=== PATIENT | male | born 1955 | race Caucasian/White ===

== ENCOUNTER 2017-04-24 07:48 | Inpatient (IN) | payer MEDICAID ==
[2017-04-24] MEDS ORDERED: Sodium Chloride 0.9% 10 ML Syringe FLUSH PRN ×2 (08:18→09:18)
--- NOTE | 2017-04-24 08:48 | EDM.PDOC ---
ED HPI GENERAL MEDICAL PROBLEM - General Chief Complaint: Respiratory Problem Stated Complaint: SOB/HAS HAD A PULMONARY EMBOLISM Time Seen by Provider: 04/24/17 08:05 Source of Information: Reports: Patient History Limitations: Reports: No Limitations - History of Present Illness INITIAL COMMENTS - FREE TEXT/NARRATIVE: pt has had increasing sob. He has a history of pulmonary emboli. he has been having increased difficulty with tolerating activity. He was blowing snow yesterdsy and felt like he was going to pas out. Onset: Gradual Duration: Hour(s): Location: Reports: Chest Associated Symptoms: Reports: Other (pt gets aching in his arms when he gets very sob. ) - Related Data Allergies Allergy/AdvReac Type Severity Reaction Status Date / Time No Known Allergies Allergy Verified 04/24/17 08:05 Home Meds: Home Meds Omeprazole 20 mg PO DAILY 03/19/16 [History] Propranolol [Inderal LA] 80 mg PO DAILY 03/19/16 [History] buPROPion [Wellbutrin XL] 150 mg PO DAILY 03/19/16 [History] Naproxen 1 tab PO ASDIRECTED 04/24/17 [History] Past Medical History Cardiovascular History: Reports: Blood Clots/VTE/DVT, Hypertension Respiratory History: Reports: PE, Pneumonia, Recurrent Gastrointestinal History: Reports: GERD Genitourinary History: Reports: Other (See Below) Other Genitourinary History: decressed urine flow Musculoskeletal History: Reports: Fracture Neurological History: Reports: Concussion - Infectious Disease History Infectious Disease History: Reports: Measles - Past Surgical History Cardiovascular Surgical History: Reports: Other (See Below) Other Cardiovascular Surgeries/Procedures: angiogram jun 2016 GI Surgical History: Reports: Appendectomy Musculoskeletal Surgical History: Reports: Arthroscopic Knee Social & Family History - Tobacco Use Smoking Status *Q: Never Smoker - Caffeine Use Caffeine Use: Reports: Coffee, Tea - Recreational Drug Use Recreational Drug Use: No ED ROS GENERAL - Review of Systems Review Of Systems: See Below Constitutional: Reports: No Symptoms HEENT: Reports: No Symptoms Respiratory: Reports: Shortness of Breath, Cough, Other ( some tightness inhis chest with deep breathing. ) Endocrine: Reports: No Symptoms GI/Abdominal: Reports: No Symptoms : Reports: No Symptoms ED EXAM, GENERAL - Physical Exam Exam: See Below Free Text/Narrative:: pt arrived with sob. which has been progressive. he had 2 episodes yestwrday when he was blowing snow. -- when he felt like he was going to pass out. Exam Limited By: No Limitations General Appearance: Alert, Mild Distress, Severe Distress Ears: Normal TMs Nose: Normal Inspection Throat/Mouth: Normal Inspection Head: Atraumatic Neck: Normal Inspection Respiratory/Chest: Decreased Breath Sounds, Other (pt is very sob with any activity. ) Cardiovascular: Regular Rate, Rhythm GI/Abdominal: Soft, Non-Tender Rectal (Males) Exam: Deferred Back Exam: Normal Inspection Extremities: Normal Inspection, Other ( no tenderness present.) Neurological: Alert, Oriented, Normal Cognition Psychiatric: Normal Affect Course - Vital Signs Last Recorded V/S: Last Vital Signs Temp 33.4 C L 04/24/17 08:04 Pulse 69 04/24/17 09:10 Resp 25 H 04/24/17 09:10 BP 101/57 L 04/24/17 09:10 Pulse Ox 89 L 04/24/17 09:10 - Orders/Labs/Meds Orders: Active Orders 24 hr Category Date Time Status EKG Documentation Completion [RC] ASDIRECTED Care 04/24/17 08:17 Active Ang Chest [CT] Stat Exams 04/24/17 09:08 Taken Chest 2V [CR] Stat Exams 04/24/17 08:32 Taken Iopamidol [Isovue-370 (76%)] Med 04/24/17 09:30 Active 100 ml IV . DIRECTED Sodium Chloride 0.9% [Normal Saline] 1,000 ml Med 04/24/17 09:15 Active IV ASDIRECTED Sodium Chloride 0.9% [Normal Saline] 90 ml Med 04/24/17 09:30 Active IV ASDIRECTED Sodium Chloride 0.9% [Saline Flush] Med 04/24/17 08:18 Active 10 ml FLUSH ASDIRECTED PRN Sodium Chloride 0.9% [Saline Flush] Med 04/24/17 09:18 Active 10 ml FLUSH ONETIME PRN Saline Lock Insert [OM.PC] Routine Oth 04/24/17 08:18 Ordered EKG 12 Lead [EK] Routine Ther 04/24/17 08:17 Ordered Medication Orders Sodium Chloride (Normal Saline) 1,000 mls @ 500 mls/hr IV ASDIRECTED OLEGARIO Last Admin: 04/24/17 09:23 Dose: 500 mls/hr Sodium Chloride (Normal Saline) 90 mls @ 4 mls/sec IV ASDIRECTED OLEGARIO Stop: 04/24/17 23:00 Last Admin: 04/24/17 09:45 Dose: 4 mls/sec Iopamidol (Isovue-370 (76%)) 100 ml IV . DIRECTED OLEGARIO Stop: 04/24/17 23:00 Last Admin: 04/24/17 09:45 Dose: 100 ml Sodium Chloride (Saline Flush) 10 ml FLUSH ASDIRECTED PRN PRN Reason: Keep Vein Open Sodium Chloride (Saline Flush) 10 ml FLUSH ONETIME PRN PRN Reason: per radiology protocol Stop: 04/24/17 23:00 Last Admin: 04/24/17 09:45 Dose: 10 ml Labs: Laboratory Tests 04/24/17 04/24/17 04/24/17 Range/Units 08:25 08:25 08:25 WBC 12.7 H (4.5-11.0) K/uL RBC 4.75 (4.30-5.90) M/uL Hgb 16.4 H (12.0-15.0) g/dL Hct 47.7 (40.0-54.0) % MCV 100 H (80-98) fL MCH 35 H (27-31) pg MCHC 34 (32-36) % Plt Count 161 (150-400) K/uL Neut % (Auto) 67 H (36-66) % Lymph % (Auto) 18 L (24-44) % Cole % (Auto) 8 H (2-6) % Eos % (Auto) 7 H (2-4) % Baso % (Auto) 1 (0-1) % PT (9.5-12.0) sec INR (0.80-1.20) APTT (27.0-36.0) sec D-Dimer, Quantitative (0.0-400.0) ng/mL Sodium 138 L (140-148) mmol/L Potassium 4.2 (3.6-5.2) mmol/L Chloride 105 (100-108) mmol/L Carbon Dioxide 20 L (21-32) mmol/L Anion Gap 17.2 H (5.0-14.0) mmol/L BUN 20 H (7-18) mg/dL Creatinine 1.3 (0.8-1.3) mg/dL Est Cr Clr Drug Dosing 63.84 mL/min Estimated GFR (MDRD) 56 L (>60) Glucose 158 H (74-106) mg/dL Calcium 8.7 (8.5-10.1) mg/dL Total Bilirubin 1.1 H D (0.2-1.0) mg/dL AST 38 H (15-37) U/L ALT 53 (12-78) U/L Alkaline Phosphatase 81 (46-116) U/L CK-MB (CK-2) 1.9 (0-3.6) mg/mL Troponin I 0.070 H* (0.000-0.056) ng/mL NT-Pro-B Natriuret Pep (5-125) pg/mL Total Protein 6.6 (6.4-8.2) g/dL Albumin 3.5 (3.4-5.0) g/dL Globulin 3.1 (2.3-3.5) g/dL Albumin/Globulin Ratio 1.1 L (1.2-2.2) 04/24/17 04/24/17 04/24/17 Range/Units 08:25 08:32 09:43 WBC (4.5-11.0) K/uL RBC (4.30-5.90) M/uL Hgb (12.0-15.0) g/dL Hct (40.0-54.0) % MCV (80-98) fL MCH (27-31) pg MCHC (32-36) % Plt Count (150-400) K/uL Neut % (Auto) (36-66) % Lymph % (Auto) (24-44) % [place] % (Auto) (2-6) % Eos % (Auto) (2-4) % Baso % (Auto) (0-1) % PT 11.6 (9.5-12.0) sec INR 1.08 (0.80-1.20) APTT 28.9 (27.0-36.0) sec D-Dimer, Quantitative 2830 H (0.0-400.0) ng/mL Sodium (140-148) mmol/L Potassium (3.6-5.2) mmol/L Chloride (100-108) mmol/L Carbon Dioxide (21-32) mmol/L Anion Gap (5.0-14.0) mmol/L BUN (7-18) mg/dL Creatinine (0.8-1.3) mg/dL Est Cr Clr Drug Dosing mL/min Estimated GFR (MDRD) (>60) Glucose (74-106) mg/dL Calcium (8.5-10.1) mg/dL Total Bilirubin (0.2-1.0) mg/dL AST (15-37) U/L ALT (12-78) U/L Alkaline Phosphatase (46-116) U/L CK-MB (CK-2) (0-3.6) mg/mL Troponin I (0.000-0.056) ng/mL NT-Pro-B Natriuret Pep 5607 H (5-125) pg/mL Total Protein (6.4-8.2) g/dL Albumin (3.4-5.0) g/dL Globulin (2.3-3.5) g/dL Albumin/Globulin Ratio (1.2-2.2) Meds: Medications Generic Name Dose Route Start Last Admin Trade Name Freq PRN Reason Stop Dose Admin Sodium Chloride 1,000 mls @ 500 mls/hr 04/24/17 09:15 04/24/17 09:23 Normal Saline IV 500 mls/hr ASDIRECTED OLEGARIO Administration Sodium Chloride 90 mls @ 4 mls/sec 04/24/17 09:30 04/24/17 09:45 Normal Saline IV 04/24/17 23:00 4 mls/sec ASDIRECTED OLEGARIO Administration Iopamidol 100 ml 04/24/17 09:30 04/24/17 09:45 Isovue-370 (76%) IV 04/24/17 23:00 100 ml . DIRECTED OLEGARIO Administration Sodium Chloride 10 ml 04/24/17 08:18 Saline Flush FLUSH ASDIRECTED PRN Keep Vein Open Sodium Chloride 10 ml 04/24/17 09:18 04/24/17 09:45 Saline Flush FLUSH 04/24/17 23:00 10 ml ONETIME PRN Administration per radiology protocol Discontinued Medications Generic Name Dose Route Start Last Admin Trade Name Freq PRN Reason Stop Dose Admin Heparin Sodium (Porcine) 5,000 units 04/24/17 10:01 Heparin Sodium IVPUSH 04/24/17 10:02 ONETIME ONE - Re-Assessments/Exams Free Text/Narrative Re-Assessment/Exam: 04/24/17 09:15 ddimer is high, his trop is elevated, His bnp is elevated. 04/24/17 10:02 lung scan was very positive for large pes bilateral. Departure - Departure Time of Disposition: 10:03 Disposition: Admitted As Inpatient 64 Condition: Fair Clinical Impression: Pulmonary embolism, bilateral, T wave inversion in EKG, Elevated brain natriuretic peptide (BNP) level - Discharge Information Referrals: David Elliott MD [Primary Care Provider] - Forms: ED Department Discharge Care Plan Goals: admit to Dr lane. - My Orders Last 24 Hours: My Active Orders 04/24/17 08:17 EKG Documentation Completion [RC] ASDIRECTED EKG 12 Lead [EK] Routine 04/24/17 08:18 Sodium Chloride 0.9% [Saline Flush] 10 ml FLUSH ASDIRECTED PRN Saline Lock Insert [OM.PC] Routine 04/24/17 08:32 Chest 2V [CR] Stat 04/24/17 09:08 Ang Chest [CT] Stat 04/24/17 09:15 Sodium Chloride 0.9% [Normal Saline] 1,000 ml IV ASDIRECTED 04/24/17 09:18 Sodium Chloride 0.9% [Saline Flush] 10 ml FLUSH ONETIME PRN 04/24/17 09:30 Iopamidol [Isovue-370 (76%)] 100 ml IV . DIRECTED Sodium Chloride 0.9% [Normal Saline] 90 ml IV ASDIRECTED - Assessment/Plan Last 24 Hours: My Active Orders 04/24/17 08:17 EKG Documentation Completion [RC] ASDIRECTED EKG 12 Lead [EK] Routine 04/24/17 08:18 Sodium Chloride 0.9% [Saline Flush] 10 ml FLUSH ASDIRECTED PRN Saline Lock Insert [OM.PC] Routine 04/24/17 08:32 Chest 2V [CR] Stat 04/24/17 09:08 Ang Chest [CT] Stat 04/24/17 09:15 Sodium Chloride 0.9% [Normal Saline] 1,000 ml IV ASDIRECTED 04/24/17 09:18 Sodium Chloride 0.9% [Saline Flush] 10 ml FLUSH ONETIME PRN 04/24/17 09:30 Iopamidol [Isovue-370 (76%)] 100 ml IV . DIRECTED Sodium Chloride 0.9% [Normal Saline] 90 ml IV ASDIRECTED
[2017-04-24] MEDS ORDERED: Sodium Chloride 0.9% 1,000 ML IV SCH ×2 (09:15→11:35)
[2017-04-24] MEDS ORDERED: Iopamidol 755 Mg/ML 100 ML Bottle IV SCH (09:30)
[2017-04-24] MEDS ORDERED: Sodium Chloride 0.9% 90 ML IV SCH (09:30)
[2017-04-24] MEDS ORDERED: Heparin Sodium 5,000 Units/ML Vial IVPUSH ONE (10:01)
--- NOTE | 2017-04-24 10:08 | CT ---
Ang Chest HISTORY: sob, history of pe TECHNIQUE: Spiral enhanced pulmonary CT angiography of the chest was obtained along with coronal and 3-D sagittal reconstructions. FINDINGS: There is good enhancement of the pulmonary arteries bilaterally. Filling defects consistent with prom inent pulmonary emboli are seen in the distal right and left main pulmonary artery. Emboli extend in to proximal to mid pulmonary arteries in the lower lobes bilaterally, left lingula, and right middle lobe. Thoracic aorta is normal in caliber. I see no evidence for thoracic aortic aneurysm or dissection. He art size is within normal limits. No hilar or mediastinal mass or adenopathy can be seen. Lungs are c lear with no infiltrate or mass. I see no signs of pulmonary infarct. There is no pleural fluid or ch est wall abnormality. Visualized upper abdominal structures are unremarkable. No lytic or blastic bon y lesion can be seen. IMPRESSION: 1. Positive for multiple pulmonary emboli bilaterally. Prominent emboli are seen in the distal right and left main pulmonary arteries extending into both lower lobes, right middle lobe, and left lingula . 2. No other acute chest abnormality is identified. Findings were discussed with Dr. Miguel in the emergency department at 0950 hours. Total DLP 487 mGycm
--- NOTE | 2017-04-24 11:14 | PCM.HP ---
H&P History of Present Illness - General Date of Service: 04/24/17 Admit Problem/Dx: Admission Diagnosis/Problem Admission Diagnosis/Problem Pulmonary embolism Source of Information: Patient, Provider History Limitations: Reports: No Limitations - History of Present Illness Initial Comments - Free Text/Narative: presents to the emergency room with 10 days of worsening shortness of breath and dyspnea with any exertion. He has not had any chest pain. He reports 3 episodes of near syncope yesterday while he was pushing snowblower. Symptoms were not any better today and he was still short of breath so he thought he better get checked out. Symptoms felt similar to a previous episode of pulmonary emboli. No fevers. No change in bowel or bladder habits. No lower extremity swelling, redness or pain. He reports decreasing exercise tolerance on his home exercise equipment over the past 10 days. Workup in the emergency room was remarkable for bilateral pulmonary emboli. He will be admitted for further management with hypoxia. - Related Data Allergies/Adverse Reactions: Allergies Allergy/AdvReac Type Severity Reaction Status Date / Time No Known Allergies Allergy Verified 04/24/17 08:05 Home Medications: Home Meds Omeprazole 20 mg PO DAILY 03/19/16 [History] Propranolol [Inderal LA] 80 mg PO DAILY 03/19/16 [History] buPROPion [Wellbutrin XL] 150 mg PO DAILY 03/19/16 [History] Naproxen 1 tab PO ASDIRECTED 04/24/17 [History] Past Medical History Cardiovascular History: Reports: Blood Clots/VTE/DVT, Hypertension Respiratory History: Reports: PE, Pneumonia, Recurrent Gastrointestinal History: Reports: GERD Genitourinary History: Reports: Other (See Below) Other Genitourinary History: decressed urine flow Musculoskeletal History: Reports: Fracture Neurological History: Reports: Concussion - Infectious Disease History Infectious Disease History: Reports: Measles - Past Surgical History Cardiovascular Surgical History: Reports: Other (See Below) Other Cardiovascular Surgeries/Procedures: angiogram jun 2016 GI Surgical History: Reports: Appendectomy Musculoskeletal Surgical History: Reports: Arthroscopic Knee Social & Family History - Family History Cardiac: Denies: Blood Clots/VTE/DVT - Tobacco Use Smoking Status *Q: Never Smoker - Caffeine Use Caffeine Use: Reports: Coffee, Tea - Alcohol Use Alcohol Use History: No - Recreational Drug Use Recreational Drug Use: No H&P Review of Systems - Review of Systems: Review Of Systems: See Below Free Text/Narrative: A complete 12 point review of systems was obtained. Pertinent positives and negatives are noted in the history of present illness. All other systems were reviewed and were negative except as noted. Exam - Exam Exam: See Below - Vital Signs Vital Signs: Last Vital Signs Temp 33.4 C L 04/24/17 08:04 Pulse 68 04/24/17 10:10 Resp 18 04/24/17 10:10 BP 108/80 04/24/17 10:10 Pulse Ox 95 04/24/17 10:10 Weight: 98.3 kg - Exam Quality Assessment: Supplemental Oxygen General: Alert, Oriented, Cooperative. No: Mild Distress HEENT: Conjunctiva Clear, Mucosa Moist & [place]. No: Scleral Icterus Neck: Supple, Trachea Midline. No: Lymphadenopathy Lungs: Clear to Auscultation, Normal Respiratory Effort Cardiovascular: Regular Rate, Regular Rhythm, Normal S1. No: Normal S2 (loud P2 ), Systolic Murmur GI/Abdominal Exam: Normal Bowel Sounds, Soft, Non-Tender, No Distention Back Exam: Normal Inspection, Full Range of Motion Extremities: Normal Inspection, No Pedal Edema. No: Megan's Sign, Increased Warmth Peripheral Pulses: 2+: Dorsalis Pedis (L), Dorsalis Pedis (R) Skin: Warm, Dry Neuro Extensive - Mental Status: Alert, Oriented x3, Nl Response to Commands Neuro Extensive - Motor, Sensory, Reflexes: CN II-XII Intact. No: Dysarthria, Abnormal Motor, Tremor Psychiatric: Alert, Normal Affect - Patient Data Lab Results Last 24 hrs: Laboratory Results - last 24 hr 04/24/17 04/24/17 04/24/17 Range/Units 08:25 08:25 08:25 WBC 12.7 H (4.5-11.0) K/uL RBC 4.75 (4.30-5.90) M/uL Hgb 16.4 H (12.0-15.0) g/dL Hct 47.7 (40.0-54.0) % MCV 100 H (80-98) fL MCH 35 H (27-31) pg MCHC 34 (32-36) % Plt Count 161 (150-400) K/uL Neut % (Auto) 67 H (36-66) % Lymph % (Auto) 18 L (24-44) % [place] % (Auto) 8 H (2-6) % Eos % (Auto) 7 H (2-4) % Baso % (Auto) 1 (0-1) % PT (9.5-12.0) sec INR (0.80-1.20) APTT (27.0-36.0) sec D-Dimer, Quantitative (0.0-400.0) ng/mL Sodium 138 L (140-148) mmol/L Potassium 4.2 (3.6-5.2) mmol/L Chloride 105 (100-108) mmol/L Carbon Dioxide 20 L (21-32) mmol/L Anion Gap 17.2 H (5.0-14.0) mmol/L BUN 20 H (7-18) mg/dL Creatinine 1.3 (0.8-1.3) mg/dL Est Cr Clr Drug Dosing 63.84 mL/min Estimated GFR (MDRD) 56 L (>60) Glucose 158 H (74-106) mg/dL Calcium 8.7 (8.5-10.1) mg/dL Total Bilirubin 1.1 H D (0.2-1.0) mg/dL AST 38 H (15-37) U/L ALT 53 (12-78) U/L Alkaline Phosphatase 81 (46-116) U/L CK-MB (CK-2) 1.9 (0-3.6) mg/mL Troponin I 0.070 H* (0.000-0.056) ng/mL NT-Pro-B Natriuret Pep (5-125) pg/mL Total Protein 6.6 (6.4-8.2) g/dL Albumin 3.5 (3.4-5.0) g/dL Globulin 3.1 (2.3-3.5) g/dL Albumin/Globulin Ratio 1.1 L (1.2-2.2) 04/24/17 04/24/17 04/24/17 Range/Units 08:25 08:32 09:43 WBC (4.5-11.0) K/uL RBC (4.30-5.90) M/uL Hgb (12.0-15.0) g/dL Hct (40.0-54.0) % MCV (80-98) fL MCH (27-31) pg MCHC (32-36) % Plt Count (150-400) K/uL Neut % (Auto) (36-66) % Lymph % (Auto) (24-44) % [place] % (Auto) (2-6) % Eos % (Auto) (2-4) % Baso % (Auto) (0-1) % PT 11.6 (9.5-12.0) sec INR 1.08 (0.80-1.20) APTT 28.9 (27.0-36.0) sec D-Dimer, Quantitative 2830 H (0.0-400.0) ng/mL Sodium (140-148) mmol/L Potassium (3.6-5.2) mmol/L Chloride (100-108) mmol/L Carbon Dioxide (21-32) mmol/L Anion Gap (5.0-14.0) mmol/L BUN (7-18) mg/dL Creatinine (0.8-1.3) mg/dL Est Cr Clr Drug Dosing mL/min Estimated GFR (MDRD) (>60) Glucose (74-106) mg/dL Calcium (8.5-10.1) mg/dL Total Bilirubin (0.2-1.0) mg/dL AST (15-37) U/L ALT (12-78) U/L Alkaline Phosphatase (46-116) U/L CK-MB (CK-2) (0-3.6) mg/mL Troponin I (0.000-0.056) ng/mL NT-Pro-B Natriuret Pep 5607 H (5-125) pg/mL Total Protein (6.4-8.2) g/dL Albumin (3.4-5.0) g/dL Globulin (2.3-3.5) g/dL Albumin/Globulin Ratio (1.2-2.2) Result Diagrams: 04/24/17 08:25 04/24/17 08:25 Imaging Impressions Last 24 hrs: CXR - clear CT pulmonary angiogram - images personally reviewed - there is evidence for bilateral pulmonary emboli with clot burden being situated at the distal end of both the left and right pulmonary artery. No other obvious infiltrate. No evidence for pulmonary infarction at this time. EKG INTERPRETATION EKG Date: 04/24/17 Rhythm: NSR Rate (Beats/Min): 73 [place]: Normal P-Wave: Present QRS: Normal ST-T: Other (T-wave inversion in II, III, aVF as well as V1 through V5) QT: Normal *Q Meaningful Use (ADM) - VTE *Q VTE Criteria *Q: - VTE Risk Assess *Q Each Risk Factor Represents 1 Point: Obesity ( BMI > 25 kg/m2) Total Score 1 Point Risk Factors: 1 Each Risk Factor Represents 2 Points: Age 60 - 74 Years Total Score 2 Point Risk Factors: 2 Each Risk Factor Represents 3 Points: History of DVT/PE Total Score 3 Point Risk Factors: 3 Each Risk Factor Represents 5 Points: None Total Score 5 Point Risk Factors: 0 Venous Thromboembolism Risk Factor Score *Q: 6 - Stroke *Q Stroke Criteria *Q: - AMI *Q AMI Criteria *Q: - Problem List (1) Pulmonary embolism, bilateral SNOMED Code(s): 26818730 ICD Code: I26.99 - OTHER PULMONARY EMBOLISM WITHOUT ACUTE COR PULMONALE Status: Acute Current Visit: Yes (2) Elevated troponin SNOMED Code(s): 711217513, 995453294 ICD Code: R74.8 - ABNORMAL LEVELS OF OTHER SERUM ENZYMES Status: Acute Current Visit: Yes Problem List Initiated/Reviewed/Updated: Yes Orders Last 24hrs: Active Orders 24 hr Category Date Time Status Patient Status Manage Transfer [TRANSFER] Routine ADT 04/24/17 11:04 Ordered EKG Documentation Completion [RC] ASDIRECTED Care 04/24/17 08:17 Active Chest 2V [CR] Stat Exams 04/24/17 08:32 Taken VL Duplex Lwr Ext Veins Comp [US] Stat Exams 04/24/17 10:18 Ordered PTT,PARTIAL THROMBOPLSTIN TIME [COAG] Routine Lab 04/24/17 17:30 Ordered Heparin Sodium/D5W [Heparin 25,000 Units in D5W 500 ML] Med 04/24/17 11:15 Ordered 25,000 units in 500 ml IV TITRATE Iopamidol [Isovue-370 (76%)] Med 04/24/17 09:30 Active 100 ml IV . DIRECTED Sodium Chloride 0.9% [Normal Saline] 1,000 ml Med 04/24/17 09:15 Active IV ASDIRECTED Sodium Chloride 0.9% [Normal Saline] 90 ml Med 04/24/17 09:30 Active IV ASDIRECTED Sodium Chloride 0.9% [Saline Flush] Med 04/24/17 08:18 Active 10 ml FLUSH ASDIRECTED PRN Sodium Chloride 0.9% [Saline Flush] Med 04/24/17 09:18 Active 10 ml FLUSH ONETIME PRN Saline Lock Insert [OM.PC] Routine Oth 04/24/17 08:18 Ordered Resuscitation Status Routine Resus Stat 04/24/17 11:05 Ordered EKG 12 Lead [EK] Routine Ther 04/24/17 08:17 Ordered Medication Orders Sodium Chloride (Normal Saline) 1,000 mls @ 500 mls/hr IV ASDIRECTED OLEGARIO Last Admin: 04/24/17 09:23 Dose: 500 mls/hr Sodium Chloride (Normal Saline) 90 mls @ 4 mls/sec IV ASDIRECTED OLEGARIO Stop: 04/24/17 23:00 Last Admin: 04/24/17 09:45 Dose: 4 mls/sec Heparin Sodium/Dextrose (Heparin 25,000 Units In D5w 500 Ml) 25,000 units in 500 mls @ 0 mls/hr IV TITRATE OLEGARIO; 18 UNITS/KG/HR PRN Reason: Protocol Iopamidol (Isovue-370 (76%)) 100 ml IV . DIRECTED OLEGARIO Stop: 04/24/17 23:00 Last Admin: 04/24/17 09:45 Dose: 100 ml Sodium Chloride (Saline Flush) 10 ml FLUSH ASDIRECTED PRN PRN Reason: Keep Vein Open Last Admin: 04/24/17 10:20 Dose: 10 ml Sodium Chloride (Saline Flush) 10 ml FLUSH ONETIME PRN PRN Reason: per radiology protocol Stop: 04/24/17 23:00 Last Admin: 04/24/17 09:45 Dose: 10 ml Assessment/Plan Comment:: ASSESSMENT AND PLAN - Recurrent bilateral pulmonary emboli - history of similar episode approximately one year ago that was provoked after a long plane flight. He has been off of his Xarelto since last fall. No preceding calf pain or swelling. I suspect the actual event was 10 days ago with progression of symptoms since that time. Currently hemodynamically stable but he does have hypoxia and requires supplemental oxygen. He has received a heparin bolus. -Heparin drip, plan to infuse through Thursday -Likely transition to Xarelto Kumar morning -Supplement oxygen -Cardiac monitoring Elevated troponin - mild, likely related to strain from pulmonary emboli. No active anginal symptoms and previous cardiac workup has been unremarkable. -Repeat level this evening and in the morning if still mildly elevated Maintenance issues - - DVT prophylaxis - currently on heparin - GI prophylaxis - PPI - Nutrition - regular diet - Juarez catheter - not indicated CODE STATUS - full code Admission justification - This patient will be admitted for inpatient services and is medically appropriate meeting medical necessity for inpatient admission as outlined in my documentation. I reasonably expect the patient will require inpatient services that span a period time over 2 midnights. I reasonably expect this patient to be discharged or transferred within 96 hours [facility] Disposition - anticipate discharge to home after the hospital stay Primary care physician - Dr Frank Reyes M.D.
--- NOTE | 2017-04-24 11:27 | CR ---
Chest 2V HISTORY: sob COMPARISON: 03/19/2016 FINDINGS: Lungs appear clear and normally aerated. Cardiomediastinal silhouette is within normal limits. No vas cular redistribution or pleural fluid can be seen. Bony structures and soft tissues are unremarkable. IMPRESSION: No acute chest abnormality or significant interval change is identified.
[2017-04-24] MEDS ORDERED: Ondansetron 4 MG Tab.DIS PO PRN (11:35)
[2017-04-24] MEDS ORDERED: Ondansetron 4 MG/2 ML SDV IV PRN (11:35)
[2017-04-24] MEDS ORDERED: Morphine 2 MG/ML Syringe IVPUSH PRN (11:35)
[2017-04-24] MEDS ORDERED: oxyCODONE 5 MG Tab PO PRN (11:35)
[2017-04-24] MEDS ORDERED: Acetaminophen 325 MG Tab PO PRN (11:35)
--- NOTE | 2017-04-24 11:36 | US ---
VL Duplex Lwr Ext Veins Comp HISTORY: known PE FINDINGS: Deep venous system of the right lower extremity demonstrates normal blood flow and compressibility th roughout. Normal Doppler waveform variation is seen with respiration and calf compression. No color f low abnormality can be seen. The left leg demonstrates lack of blood flow and noncompressibility lung with echogenic thrombus in t he popliteal vein. Remainder of the deep veins of the left leg shows normal blood flow and compressib ility throughout. IMPRESSION: 1. No sonographic evidence for DVT right lower extremity. 2. Positive for DVT left popliteal vein. Report was called to Dr. Miguel in the Emergency Department at the time of the exam.
[2017-04-24] MEDS: Heparin Sodium/D5W 25,000 UNITS/500 ML BAG IV SCH (12:01)
[2017-04-25] MEDS: Heparin Sodium/D5W 25,000 UNITS/500 ML BAG IV SCH ×2 (02:55→18:24)
[2017-04-25] MEDS: buPROPion 150 MG Tab.ER PO SCH (08:35)
[2017-04-25] MEDS: Propranolol 80 MG Cap.ER PO SCH (08:35)
[2017-04-25] MEDS: Pantoprazole 40 MG Tab.CR PO SCH (08:35)
--- NOTE | 2017-04-25 09:49 | PCM.PN ---
- General Info Date of Service: 04/25/17 Functional Status: Reports: Pain Controlled, Tolerating Diet - Review of Systems General: Denies: Fever Pulmonary: Reports: Shortness of Breath Cardiovascular: Denies: Chest Pain Systems Review Comment:: No acute events overnight though patient did go into atrial fibrillation. Heart rate has been well controlled unless he is up and moving around. He with activity his heart rate does rise to 120 to 130s. No chest pain reported. He thinks his breathing has improved a little since yesterday. Tolerating heparin with no bleeding issues. Did require supplemental oxygen overnight but is off as of this morning. - Patient Data Vitals - Most Recent: Last Vital Signs Temp 37.1 C 04/25/17 08:00 Pulse 102 H 04/25/17 08:00 Resp 20 04/25/17 08:00 BP 102/81 04/25/17 08:00 Pulse Ox 95 04/25/17 08:00 Weight - Most Recent: 98.3 kg I&O - Last 24 Hours: Intake & Output 04/24/17 04/25/17 04/25/17 22:59 06:59 14:59 Intake Total 316 726 Output Total 850 400 Balance -534 326 Lab Results Last 24 Hours: Laboratory Results - last 24 hr 04/24/17 04/24/17 04/25/17 Range/Units 17:20 17:20 00:10 WBC (4.5-11.0) K/uL RBC (4.30-5.90) M/uL Hgb (12.0-15.0) g/dL Hct (40.0-54.0) % MCV (80-98) fL MCH (27-31) pg MCHC (32-36) % Plt Count (150-400) K/uL APTT 72.7 H 54.6 H (27.0-36.0) sec Sodium (140-148) mmol/L Potassium (3.6-5.2) mmol/L Chloride (100-108) mmol/L Carbon Dioxide (21-32) mmol/L Anion Gap (5.0-14.0) mmol/L BUN (7-18) mg/dL Creatinine (0.8-1.3) mg/dL Est Cr Clr Drug Dosing mL/min Estimated GFR (MDRD) (>60) Glucose (74-106) mg/dL Calcium (8.5-10.1) mg/dL Troponin I 0.125 H* (0.000-0.056) ng/mL 04/25/17 04/25/17 04/25/17 Range/Units 06:10 06:10 06:10 WBC 10.8 (4.5-11.0) K/uL RBC 4.37 (4.30-5.90) M/uL Hgb 15.4 H (12.0-15.0) g/dL Hct 43.6 (40.0-54.0) % MCV 100 H (80-98) fL MCH 35 H (27-31) pg MCHC 35 (32-36) % Plt Count 126 L (150-400) K/uL APTT 60.8 H (27.0-36.0) sec Sodium 140 (140-148) mmol/L Potassium 3.9 (3.6-5.2) mmol/L Chloride 108 (100-108) mmol/L Carbon Dioxide 22 (21-32) mmol/L Anion Gap 10.3 (5.0-14.0) mmol/L BUN 14 (7-18) mg/dL Creatinine 1.0 (0.8-1.3) mg/dL Est Cr Clr Drug Dosing 82.99 mL/min Estimated GFR (MDRD) > 60 (>60) Glucose 124 H (74-106) mg/dL Calcium 8.3 L (8.5-10.1) mg/dL Troponin I 0.089 H* (0.000-0.056) ng/mL Med Orders - Current: Current Medications Acetaminophen (Tylenol) 650 mg PO Q4H PRN PRN Reason: Pain (Mild 1-3)/fever Bupropion HCl (Wellbutrin Xl) 150 mg PO DAILY [facility] Last Admin: 04/25/17 08:35 Dose: 150 mg Heparin Sodium/Dextrose (Heparin 25,000 Units In D5w 500 Ml) 25,000 units in 500 mls @ 0 mls/hr IV TITRATE [facility]; 18 UNITS/KG/HR PRN Reason: Protocol Last Admin: 04/25/17 02:55 Dose: 16.02 units/kg/hr, 31.5 mls/hr Sodium Chloride (Normal Saline) 1,000 mls @ 25 mls/hr IV ASDIRECTED [facility] Morphine Sulfate (Morphine) 2 mg IVPUSH Q2H PRN PRN Reason: Pain (severe 7-10) Ondansetron HCl (Zofran Odt) 4 mg PO Q6H PRN PRN Reason: Nausea able to take PO Ondansetron HCl (Zofran) 4 mg IV Q6H PRN PRN Reason: Nausea/Vomiting Oxycodone HCl (Oxycodone) 5 mg PO Q4H PRN PRN Reason: Pain (moderate 4-6) Pantoprazole Sodium (Protonix) 40 mg PO ACBREAKFAST [facility] Last Admin: 04/25/17 08:35 Dose: 40 mg Propranolol HCl (Inderal La) 80 mg PO DAILY [facility] Last Admin: 04/25/17 08:35 Dose: 80 mg Sodium Chloride (Saline Flush) 10 ml FLUSH ASDIRECTED PRN PRN Reason: Keep Vein Open Last Admin: 04/24/17 10:20 Dose: 10 ml Discontinued Medications Heparin Sodium (Porcine) (Heparin Sodium) 5,000 units IVPUSH ONETIME ONE Stop: 04/24/17 10:02 Last Admin: 04/24/17 10:19 Dose: 5,000 units Sodium Chloride (Normal Saline) 1,000 mls @ 500 mls/hr IV ASDIRECTED [facility] Last Admin: 04/24/17 09:23 Dose: 500 mls/hr Sodium Chloride (Normal Saline) 90 mls @ 4 mls/sec IV ASDIRECTED [facility] Stop: 04/24/17 23:00 Last Admin: 04/24/17 09:45 Dose: 4 mls/sec Iopamidol (Isovue-370 (76%)) 100 ml IV . DIRECTED [facility] Stop: 04/24/17 23:00 Last Admin: 04/24/17 09:45 Dose: 100 ml Sodium Chloride (Saline Flush) 10 ml FLUSH ONETIME PRN PRN Reason: per radiology protocol Stop: 04/24/17 23:00 Last Admin: 04/24/17 09:45 Dose: 10 ml - Exam Quality Assessment: No: Supplemental Oxygen General: Alert, Oriented, Cooperative, No Acute Distress Neck: Supple Lungs: Clear to Auscultation, Normal Respiratory Effort Cardiovascular: Irregular Rhythm, Tachycardia. No: Murmurs GI/Abdominal Exam: Soft, No Distention Extremities: No Pedal Edema Psy/Mental Status: Alert, Normal Affect - Problem List & Annotations (1) Pulmonary embolism, bilateral SNOMED Code(s): 99935373 Code(s): I26.99 - OTHER PULMONARY EMBOLISM WITHOUT ACUTE COR PULMONALE Status: Acute Current Visit: Yes (2) Elevated troponin SNOMED Code(s): 273697234, 055651730 Code(s): R74.8 - ABNORMAL LEVELS OF OTHER SERUM ENZYMES Status: Acute Current Visit: Yes - Problem List Review Problem List Initiated/Reviewed/Updated: Yes - My Orders Last 24 Hours: My Active Orders 04/24/17 11:05 Resuscitation Status Routine 04/24/17 11:35 Patient Status [ADT] Routine Bedrest Bathroom Privileges [RC] ASDIRECTED Cardiac Monitoring [RC] CONTINUOUS Intake and Output [RC] Q12H Notify Provider Vital Signs [RC] ASDIRECTED Oxygen Therapy [RC] PRN Pulse Oximetry [RC] CONTINUOUS VTE/DVT Education [RC] .PRN Vital Signs [RC] Q2HR Acetaminophen [Tylenol] 650 mg PO Q4H PRN Morphine 2 mg IVPUSH Q2H PRN Ondansetron [Zofran ODT] 4 mg PO Q6H PRN Ondansetron [Zofran] 4 mg IV Q6H PRN Sodium Chloride 0.9% [Normal Saline] 1,000 ml IV ASDIRECTED oxyCODONE 5 mg PO Q4H PRN 04/24/17 Lunch Regular Diet [DIET] 04/25/17 07:30 Pantoprazole [ProTONIX] 40 mg PO ACBREAKFAST 04/26/17 05:00 BASIC METABOLIC PANEL,BMP [CHEM] Timed CBC W/O DIFF,HEMOGRAM [HEME] Timed (1) TROPONIN I [CHEM] Timed - Plan Plan:: ASSESSMENT AND PLAN - Recurrent bilateral pulmonary emboli - he has remained stable other than developing atrial fibrillation. Off oxygen this morning but did require throughout the night. Tolerating anticoagulation. -Heparin drip, plan to infuse through Thursday -Likely transition to Xarelto Thursday -Supplement oxygen -Cardiac monitoring -Anticipate long-term anticoagulation with second episode of pulmonary emboli Paroxysmal atrial fibrillation - rate controlled as long as he is resting but does rise a little with activity. Blood pressures are borderline But Hold off on Adding Any Additional Rate Control at This Time. I Would Anticipate This Should Improve As His Pulmonary Embolism Treatment Progresses. -Continue beta marshall -Cardiac monitoring Elevated troponin - mild, likely related to strain from pulmonary emboli. Level did rise slightly after admission but has trended down. -Repeat level in the morning Maintenance issues - - DVT prophylaxis - currently on heparin - GI prophylaxis - PPI - Nutrition - regular diet Disposition - anticipate discharge to home after the hospital stay Primary care physician - Dr Frank Reyes M.D.
[2017-04-26] MEDS: Pantoprazole 40 MG Tab.CR PO SCH (09:12)
[2017-04-26] MEDS: Propranolol 80 MG Cap.ER PO SCH (09:12)
[2017-04-26] MEDS: buPROPion 150 MG Tab.ER PO SCH (09:13)
--- NOTE | 2017-04-26 10:14 | PCM.DCSUM1 ---
Discharge Summary - Hospital Course Brief History: 61-year-old male with history of provoked ulnar emboli recently off anticoagulation who presented with presyncope and shortness of breath. He was admitted for management of recurrent, bilateral pulmonary emboli. - Discharge Data Discharge Date: 04/26/17 Discharge Disposition: Home, Self-Care 01 Condition: Good - Discharge Diagnosis/Problem(s) (1) Pulmonary embolism, bilateral SNOMED Code(s): 90797636 ICD Code: I26.99 - OTHER PULMONARY EMBOLISM WITHOUT ACUTE COR PULMONALE Status: Acute Current Visit: Yes (2) Elevated troponin SNOMED Code(s): 080406111, 751020554 ICD Code: R74.8 - ABNORMAL LEVELS OF OTHER SERUM ENZYMES Status: Acute Current Visit: Yes (3) Paroxysmal atrial fibrillation with rapid ventricular response SNOMED Code(s): 990122379 ICD Code: I48.0 - PAROXYSMAL ATRIAL FIBRILLATION Status: Acute Current Visit: Yes - Patient Summary/Data Hospital Course: presented to the emergency room with near syncope and dyspnea on exertion. Workup in the emergency room was remarkable for a mildly elevated troponin level as well as bilateral pulmonary emboli located in the distal portion of both the left and right main pulmonary arteries. He received a heparin bolus followed by an infusion and was admitted to the intensive care unit for further management.overnight following admission the patient developed paroxysmal atrial fibrillation with a mild rapid ventricular response. Resting heart rate was in the 90-100 range but when he was up and about went up to the 140s. Over the next 24 hours he showed clinical improvement with spontaneous return to normal sinus rhythm. His heart rate decreased from the 90s and 100s down to the 70s and low 80s. We were able to wean him off the supplemental oxygen. He tolerated the heparin infusion well with no bleeding issues. Symptomatically he was feeling better 24 hours after admission with improvements in his dyspnea. He has not had any difficulty with chest pain. His troponin level did rise from 0.07 to 0.1 and then has gone back down and normalized. on the morning of discharge we did discontinue the heparin infusion and transitioned him to Xarelto. We ambulated in the [place] with the use of telemetry monitoring and saw no significant difficulties with dysrhythmias or tachycardia. Symptomatically he feels well other than very mild lightheadedness. He feels like he is safe at home at this time and I believe he is safe for outpatient management as well. I did send him with a prescription for Xarelto 15 mg which she will take twice daily for a total of 21 days. After that time he will start taking 20 mg daily. He reports that he has at least one month and probably a couple months worth of medication left from the last time he was on the medication. With his second episode of significant pulmonary emboli I think he will need long-term and possibly lifelong anticoagulation. There is no obvious provoking event for these pulmonary emboli. He will be following up with Dr. Elliott. He may benefit from a hematology referral to see if additional testing is needed, particularly for genetic counseling if his kids are at risk for an inherited thrombotic disorder. - Patient Instructions Diet: Regular Diet as Tolerated Activity: As Tolerated, No Strenuous Activities (For the next 1-2 weeks) Showering/Bathing: May Shower Notify Provider of: Fever, Increased Pain Other/Special Instructions: 1. You were in the hospital for management of recurrent bilateral pulmonary emboli. You have been improving with anticoagulation therapy and we have transitioned you to rivaroxaban (Xarelto). You should take 15 mg twice daily for a total of 21 days. After this time you will take 20 mg once daily as maintenance. I would recommend that you follow up with a 3rd mate after hospital discharge because of the recurrent and unprovoked nature of this second event. I would anticipate that you will require at least long-term and possibly lifelong anticoagulation because of this second event. 2. Please continue your other medications as previously prescribed. 3. Seek medical attention if you develop fever greater than 101, pass out, have sudden onset of significant shortness of breath or if you develop chest pain. - Discharge Plan Prescriptions/Med Rec: Rivaroxaban [Xarelto] 15 mg PO BID #41 tablet Home Medications: Home Meds Omeprazole 20 mg PO DAILY 03/19/16 [History] Propranolol [Inderal LA] 80 mg PO DAILY 03/19/16 [History] buPROPion [buPROPion XL] 150 mg PO DAILY 03/19/16 [History] Naproxen 1 tab PO ASDIRECTED 04/24/17 [History] Rivaroxaban [Xarelto] 15 mg PO BID #41 tablet 04/26/17 [Rx] Patient Handouts: Rivaroxaban oral tablets, Pulmonary Embolism Referrals: David Elliott MD [Primary Care Provider] - (f/u in 1-2 weeks - follow-up hospital stay for recurrent bilateral pulmonary emboli) - Discharge Summary/Plan Comment DC Time >30 min.: No (25) - Patient Data Vitals - Most Recent: Last Vital Signs Temp 37.2 C 04/26/17 02:00 Pulse 73 04/26/17 06:00 Resp 10 L 04/26/17 08:00 BP 86/53 L 04/26/17 08:00 Pulse Ox 94 L 04/26/17 08:00 Weight - Most Recent: 98.3 kg I&O - Last 24 hours: Intake & Output 04/25/17 04/26/17 04/26/17 22:59 06:59 14:59 Intake Total 772 665 Output Total 600 800 750 Balance 172 -135 -750 Lab Results - Last 24 hrs: Laboratory Results - last 24 hr 04/26/17 04/26/17 04/26/17 Range/Units 03:50 03:50 03:50 WBC 10.1 (4.5-11.0) K/uL RBC 4.24 L (4.30-5.90) M/uL Hgb 14.5 (12.0-15.0) g/dL Hct 43.0 (40.0-54.0) % MCV 101 H (80-98) fL MCH 34 H (27-31) pg MCHC 34 (32-36) % Plt Count 137 L (150-400) K/uL APTT 59.7 H (27.0-36.0) sec Sodium 139 L (140-148) mmol/L Potassium 3.6 (3.6-5.2) mmol/L Chloride 106 (100-108) mmol/L Carbon Dioxide 23 (21-32) mmol/L Anion Gap 13.6 (5.0-14.0) mmol/L BUN 13 (7-18) mg/dL Creatinine 1.0 (0.8-1.3) mg/dL Est Cr Clr Drug Dosing 82.99 mL/min Estimated GFR (MDRD) > 60 (>60) Glucose 129 H (74-106) mg/dL Calcium 8.2 L (8.5-10.1) mg/dL Troponin I 0.054 (0.000-0.056) ng/mL Med Orders - Current: Current Medications Acetaminophen (Tylenol) 650 mg PO Q4H PRN PRN Reason: Pain (Mild 1-3)/fever Bupropion HCl (Wellbutrin Xl) 150 mg PO DAILY [facility] Last Admin: 04/26/17 09:13 Dose: 150 mg Morphine Sulfate (Morphine) 2 mg IVPUSH Q2H PRN PRN Reason: Pain (severe 7-10) Ondansetron HCl (Zofran Odt) 4 mg PO Q6H PRN PRN Reason: Nausea able to take PO Ondansetron HCl (Zofran) 4 mg IV Q6H PRN PRN Reason: Nausea/Vomiting Oxycodone HCl (Oxycodone) 5 mg PO Q4H PRN PRN Reason: Pain (moderate 4-6) Last Admin: 04/26/17 00:28 Dose: 5 mg Pantoprazole Sodium (Protonix) 40 mg PO ACBREAKFAST [facility] [place] Last Admin: 04/26/17 09:12 Dose: 40 mg Propranolol HCl (Inderal La) 80 mg PO DAILY [facility] [place] Last Admin: 04/26/17 09:12 Dose: 80 mg Rivaroxaban (Xarelto) 15 mg PO BID [facility] Sodium Chloride (Saline Flush) 10 ml FLUSH ASDIRECTED PRN PRN Reason: Keep Vein Open Last Admin: 04/24/17 10:20 Dose: 10 ml Discontinued Medications Heparin Sodium (Porcine) (Heparin Sodium) 5,000 units IVPUSH ONETIME ONE Stop: 04/24/17 10:02 Last Admin: 04/24/17 10:19 Dose: 5,000 units Sodium Chloride (Normal Saline) 1,000 mls @ 500 mls/hr IV ASDIRECTED [facility] Last Admin: 04/24/17 09:23 Dose: 500 mls/hr Sodium Chloride (Normal Saline) 90 mls @ 4 mls/sec IV ASDIRECTED [facility] Stop: 04/24/17 23:00 Last Admin: 04/24/17 09:45 Dose: 4 mls/sec Heparin Sodium/Dextrose (Heparin 25,000 Units In D5w 500 Ml) 25,000 units in 500 mls @ 0 mls/hr IV TITRATE [facility]; 18 UNITS/KG/HR PRN Reason: Protocol Last Admin: 04/25/17 18:24 Dose: 16.02 units/kg/hr, 31.5 mls/hr Sodium Chloride (Normal Saline) 1,000 mls @ 25 mls/hr IV ASDIRECTED [facility] Iopamidol (Isovue-370 (76%)) 100 ml IV . DIRECTED [facility] Stop: 04/24/17 23:00 Last Admin: 04/24/17 09:45 Dose: 100 ml Sodium Chloride (Saline Flush) 10 ml FLUSH ONETIME PRN PRN Reason: per radiology protocol Stop: 04/24/17 23:00 Last Admin: 04/24/17 09:45 Dose: 10 ml - Exam Quality Assessment: Denies: Supplemental Oxygen General: Reports: Alert, Oriented, Cooperative, No Acute Distress Lungs: Reports: Normal Respiratory Effort Cardiovascular: Reports: Regular Rate, Regular Rhythm *Q Meaningful Use (DIS) - VTE *Q VTE Criteria *Q: - Stroke *Q Stroke Criteria *Q: - AMI *Q AMI Criteria *Q:
[2017-04-26] MEDS ORDERED: Rivaroxaban 15 MG Tab PO SCH (10:15)
[2017-04-26 10:16] VITALS: BP 103/78
== END 2017-04-26 11:45 | disposition home or self-care (01) | DRG 176 ==
LOC: JP.ED 07:48 → JP.ICU 11:04
PROVIDERS: ADMIT Internal Medicine; ATTEND Internal Medicine
DX: I26.99 Other pulmonary embolism without acute cor pulmonale (principal); I82.432 Acute embolism and thrombosis of left popliteal vein; Z86.711 Personal history of pulmonary embolism; R74.8 Abnormal levels of other serum enzymes; I10 Essential (primary) hypertension; R09.02 Hypoxemia; R55 Syncope and collapse; I48.0 Paroxysmal atrial fibrillation; Z87.01 Personal history of pneumonia (recurrent); K21.9 Gastro-esophageal reflux disease without esophagitis; Z79.01 Long term (current) use of anticoagulants
CPT/HCPCS: 36415; 71020; 71020-26; 71275; 71275-26; 80048; 80053; 82553; 83880; 84484; 85025; 85027; 85379; 85610; 85730; 93005; 93970; 93970-26; 96361; 96374; 99285-25; A9270-GY; J1644; J7030; J7040; J7050; Q9967